=== PATIENT | male | born 1990 | race Caucasian/White ===

== ENCOUNTER 2019-06-10 11:05 | Observation (INO) | payer SELFPAY ==
[2019-06-10] MEDS ORDERED: Sodium Chloride 0.9% 1,000 ML IV ONE (11:10)
[2019-06-10] MEDS ORDERED: Ondansetron 4 MG/2 ML SDV IVPUSH ONE (11:12)
[2019-06-10] MEDS ORDERED: LORazepam 2 MG/ML SDV IVPUSH ONE (11:18)
--- NOTE | 2019-06-10 11:18 | EDM.PDOCBH ---
ED HPI GENERAL MEDICAL PROBLEM - General Chief Complaint: Drug or Alcohol Abuse Stated Complaint: EMS ARRIVAL Time Seen by Provider: 06/10/19 11:15 Source of Information: Reports: Patient History Limitations: Reports: No Limitations - History of Present Illness INITIAL COMMENTS - FREE TEXT/NARRATIVE: HISTORY AND PHYSICAL: History of present illness: Patient is a 28-year-old male who presents to the emergency room today with complaints of alcohol withdrawal and bilateral hand cramping. He reports that he has a daily drinker, drinking approximately 3 L of vodka daily. Stating "if I don't drink all day long although through withdrawals within 2 hours". He states his last drink was at 8 AM and has not been able to obtain any alcohol, therefore called EMS to transport to the emergency room. Patient denies any fever, chills, headache, change in vision, syncope or near syncope. Denies any chest pain, back pain, shortness of breath or cough. Denies any abdominal pain, nausea, vomiting, diarrhea, constipation or dysuria. Has not noted any blood in urine or stool. Patient has been eating and drinking appropriately. Review of systems: As per history of present illness and below otherwise all systems reviewed and negative. Past medical history: As per history of present illness and as reviewed below otherwise noncontributory. Surgical history: As per history of present illness and as reviewed below otherwise noncontributory. Social history: See social history for further information Family history: As per history of present illness and as reviewed below otherwise noncontributory. Physical exam: General: Well-developed and well-nourished 28 showed male. Alert and oriented. Nontoxic appearing and in no acute distress. HEENT: Atraumatic, normocephalic, pupils equal and reactive bilaterally, negative for conjunctival pallor or scleral icterus, mucous membranes moist, TMs normal bilaterally, throat clear, neck supple, nontender, trachea midline. No drooling or trismus noted. No meningeal signs. No hot potato voice noted. Lungs: Clear to auscultation, breath sounds equal bilaterally, chest nontender. Heart: S1S2, regular rate and rhythm without overt murmur Abdomen: Soft, nondistended, nontender. Negative for masses or hepatosplenomegaly. Negative for costovertebral tenderness. Pelvis: Stable nontender. Genitourinary: Deferred. Rectal: Deferred. Skin: Intact, warm, dry. No lesions or rashes noted. Extremities: Atraumatic, moves all extremities per self without difficulty or deficits, negative for cords or calf pain. Carpalpedal spasm bilaterally. Neurovascular unremarkable. Neuro: Awake, alert, oriented. Cranial nerves II through XII unremarkable. Cerebellum unremarkable. Motor and sensory unremarkable throughout. Exam nonfocal. Notes: Carpal pedal spasms have resolved after IV fluid initiation and IV Ativan. Patient does have low potassium. We'll admit patient for IV fluid replacement and potassium. He is agreeable. Dr. Ramirez was consulted on this patient. Dr Boyd has been down to evaluate this patient. Diagnostics: CBC, CMP, Therapeutics: IV fluids, Zofran, Banana Bag, Ativan Impression: Hypokalemia Alcohol Abuse Plan: Observation to Med/Surg Definitive disposition and diagnosis as appropriate pending reevaluation and review of above. 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: Other (see below) Other Treatments RN HOUSE SUPERVISOR: BG [id number] Left Hand Pain Score (Numeric/FACES): 6 - Related Data Allergies Allergy/AdvReac Type Severity Reaction Status Date / Time No Known Allergies Allergy Verified 06/10/19 18:11 Home Meds: Home Meds ALPRAZolam [Xanax] 1 mg PO 06/10/19 [History] Propranolol [Inderal] 10 mg PO 06/10/19 [History] QUEtiapine [SEROquel] 25 mg PO BID 06/10/19 [History] Past Medical History - Past Health History Medical/Surgical History: Denies Medical/Surgical History Psychiatric History: Reports: Anxiety Social & Family History - Family History Family Medical History: Noncontributory - Tobacco Use Smoking Status *Q: Current Every Day Smoker Years of Tobacco use: 16 Packs/Tins Daily: 1 - Recreational Drug Use Recreational Drug Use: No ED ROS GENERAL - Review of Systems Review Of Systems: ROS reveals no pertinent complaints other than HPI. ED EXAM, BEHAVIORAL HEALTH - Physical Exam Exam: See Below (See dictation) COURSE, BEHAVIORAL HEALTH COMP - Course Vital Signs: Last Vital Signs Temp 98.3 F 06/10/19 16:00 Pulse 89 06/10/19 16:00 Resp 18 06/10/19 16:00 BP 113/71 06/10/19 16:00 Pulse Ox 99 06/10/19 16:00 Orders, Labs, Meds: Active Orders 24 hr Category Date Time Status Admission Status [Patient Status] [ADT] Stat ADT 06/10/19 12:33 Active Cardiac Monitoring [RC] . DIRECTED Care 06/10/19 12:49 Active EKG Documentation Completion [RC] STAT Care 06/10/19 12:06 Active Medication Orders Acetaminophen (Tylenol) 650 mg PO Q4H PRN PRN Reason: Pain/Fever Enoxaparin Sodium (Lovenox) 40 mg SUBCUT Q24H LAVONNE Last Admin: 06/10/19 15:19 Dose: 40 mg Folic Acid (Folic Acid) 1 mg PO BEDTIME LAVONNE Sodium Chloride (Normal Saline) 1,000 mls @ 125 mls/hr IV ASDIRECTED LAVONNE Last Admin: 06/10/19 13:24 Dose: 125 mls/hr Lorazepam (Ativan) 0 mg PO Q4H PRN; Protocol PRN Reason: Withdrawal Symptoms Last Admin: 06/10/19 16:54 Dose: 1 mg Lorazepam (Ativan) 0 mg IVPUSH Q4H PRN; Protocol PRN Reason: Withdrawal Symptoms Multivitamins/Minerals/Vitamin C (Tab-A-Florian) 1 tab PO BEDTIME L[facility]ONNE Ondansetron HCl (Zofran) 4 mg IVPUSH Q4H PRN PRN Reason: Nausea/Vomiting Last Admin: 06/10/19 16:59 Dose: 4 mg Thiamine HCl (Vitamin B-1) 100 mg PO BEDTIME [facility] Laboratory Tests 06/10/19 06/10/19 Range/Units 11:21 11:21 WBC 11.17 H (4.0-11.0) K/uL RBC 5.64 (4.50-5.90) M/uL Hgb 16.4 (13.0-17.0) g/dL Hct 46.3 (38.0-50.0) % MCV 82.1 (80.0-98.0) fL MCH 29.1 (27.0-32.0) pg MCHC 35.4 (31.0-37.0) g/dL RDW Std Deviation 38.6 (28.0-62.0) fl RDW Coeff of Katya 13 (11.0-15.0) % Plt Count 305 (150-400) K/uL MPV 9.80 (7.40-12.00) fL Neut % (Auto) 70.9 (48.0-80.0) % Lymph % (Auto) 20.2 (16.0-40.0) % [place] % (Auto) 8.6 (0.0-15.0) % Eos % (Auto) 0.0 (0.0-7.0) % Baso % (Auto) 0.3 (0.0-1.5) % Neut # (Auto) 7.9 H (1.4-5.7) K/uL Lymph # (Auto) 2.3 (0.6-2.4) K/uL [place] # (Auto) 1.0 H (0.0-0.8) K/uL Eos # (Auto) 0.0 (0.0-0.7) K/uL Baso # (Auto) 0.0 (0.0-0.1) K/uL Nucleated RBC % 0.0 /100WBC Nucleated RBCs # 0 K/uL Sodium 138 (136-148) mmol/L Potassium 2.8 L (3.5-5.1) mmol/L Chloride 88 L (98-107) mmol/L Carbon Dioxide 31.1 (21.0-32.0) mmol/L BUN 9 (7.0-18.0) mg/dL Creatinine 1.0 (0.8-1.3) mg/dL Est Cr Clr Drug Dosing 115.58 mL/min Estimated GFR (MDRD) > 60.0 ml/min Glucose 149 H (74-106) mg/dL Calcium 9.5 (8.5-10.1) mg/dL Magnesium 2.3 (1.8-2.4) mg/dL Total Bilirubin 1.1 H (0.2-1.0) mg/dL AST 58 H (15-37) IU/L ALT 58 (14-63) IU/L Alkaline Phosphatase 201 H (46-116) U/L Total Protein 8.4 H (6.4-8.2) g/dL Albumin 4.2 (3.4-5.0) g/dL Globulin 4.2 H (2.6-4.0) g/dL Albumin/Globulin Ratio 1.0 (0.9-1.6) Ethyl Alcohol 249 mg/dL Medications Generic Name Dose Route Start Last Admin Trade Name Megan PRN Reason Stop Dose Admin Acetaminophen 650 mg 06/10/19 15:23 Tylenol PO Q4H PRN Pain/Fever Enoxaparin Sodium 40 mg 06/10/19 13:15 06/10/19 15:19 Lovenox SUBCUT 40 mg Q24H LAVONNE Administration Folic Acid 1 mg 06/10/19 21:00 Folic Acid PO BEDTIME L[facility]ONNE Sodium Chloride 1,000 mls @ 125 mls/hr 06/10/19 13:15 06/10/19 13:24 Normal Saline IV 125 mls/hr ASDIRECTED LAVONNE Administration Lorazepam 0 mg 06/10/19 13:13 06/10/19 16:54 Ativan PO 1 mg Q4H PRN Administration Withdrawal Symptoms Protocol Lorazepam 0 mg 06/10/19 13:15 Ativan IVPUSH Q4H PRN Withdrawal Symptoms Protocol Multivitamins/Minerals/Vitamin C 1 tab 06/10/19 21:00 Tab-A-Florian PO BEDTIME L[facility]ONNE Ondansetron HCl 4 mg 06/10/19 15:24 06/10/19 16:59 Zofran IVPUSH 4 mg Q4H PRN Administration Nausea/Vomiting Thiamine HCl 100 mg 06/10/19 21:00 Vitamin B-1 PO BEDTIME LAVONNE Discontinued Medications Generic Name Dose Route Start Last Admin Trade Name Megan VASQUEZN Reason Stop Dose Admin Sodium Chloride 1,000 mls @ 999 mls/hr 06/10/19 11:10 06/10/19 11:39 Normal Saline IV 06/10/19 12:10 999 mls/hr STAT ONE Administration Multivitamins/Minerals 10 ml/ 1,011.2 mls @ 999 mls/hr 06/10/19 11:20 12:05 Thiamine HCl 100 mg/ Folic IV 06/10/19 12:20 999 mls/hr Acid 1 mg/ Sodium Chloride ONETIME ONE Administration Potassium Chloride 40 meq/ 100 mls @ 25 mls/hr 06/10/19 12:05 06/10/19 13:24 Premix IV 06/10/19 16:04 25 mls/hr ONETIME ONE Administration Lorazepam 1 mg 06/10/19 11:18 06/10/19 11:41 Ativan IVPUSH 06/10/19 11:19 1 mg ONETIME ONE Administration Ondansetron HCl 4 mg 06/10/19 11:12 06/10/19 11:39 Zofran IVPUSH 06/10/19 11:13 4 mg ONETIME ONE Administration Departure - Departure Time of Disposition: 18:18 Disposition: Refer to Observation Clinical Impression: Alcohol abuse, Hypokalemia - Discharge Information - My Orders Last 24 Hours: My Active Orders 06/10/19 12:06 EKG Documentation Completion [RC] STAT 06/10/19 12:33 Admission Status [Patient Status] [ADT] Stat 06/10/19 12:49 Cardiac Monitoring [RC] . DIRECTED - Assessment/Plan Last 24 Hours: My Active Orders 06/10/19 12:06 EKG Documentation Completion [RC] STAT 06/10/19 12:33 Admission Status [Patient Status] [ADT] Stat 06/10/19 12:49 Cardiac Monitoring [RC] . DIRECTED
[2019-06-10] MEDS ORDERED: MVI, Adult with Vitamin K 10 ML, Thiamine 100 MG, Folic Acid 1 MG in Sodium Chloride 0.... IV ONE ×4 (11:20)
[2019-06-10 12:00] LABS: CHLORIDE,CL 88 mmol/L (98-107); SODIUM,NA 138 mmol/L (136-148)
[2019-06-10] MEDS ORDERED: Potassium Chloride Riders 40 MEQ in Premix Bag 1 BAG IV ONE (12:05)
[2019-06-10] MEDS ORDERED: LORazepam 0.5 MG Tab PO PRN (13:13)
[2019-06-10] MEDS ORDERED: LORazepam 2 MG/ML SDV IVPUSH PRN (13:15)
[2019-06-10] MEDS: Sodium Chloride 0.9% 1,000 ML IV SCH ×2 (13:24→21:17)
--- NOTE | 2019-06-10 13:24 | PCM.HP.2 ---
H&P History of Present Illness - General Date of Service: 06/10/19 Admit Problem/Dx: Admission Diagnosis/Problem Admission Diagnosis/Problem Hypokalemia - History of Present Illness Initial Comments - Free Text/Narative: The patient is a 28-year-old male who presented to the ER today wanting detox. He reports for the past 6 days and drinking 3-4 bottles of vodka daily. His last drink was 8 AM this morning. He reports that he's been to rehabilitation several times, last time was December of this year. 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 He notes that his withdrawal symptoms include clenching of his fist which he had this morning and got better with Ativan dose in the ER. He reports he does not want to go to rehabilitation at this point, he just wants to sober up. In the ER labs did not show any anemia or thrombocytopenia. It did show that he was hypokalemic, so he was given a banana bag and 40 mEq of potassium He was also given a dose of Ativan and multivitamin as well. Additional lab results and elevation in his AST and alkaline phosphatase. His alcohol level was 249. Left Hand Pain Score (Numeric/FACES): 6 - Related Data Allergies/Adverse Reactions: Allergies Allergy/AdvReac Type Severity Reaction Status Date / Time No Known Allergies Allergy Verified 06/10/19 11:09 Home Medications: Home Meds ALPRAZolam [Xanax] 1 mg PO 06/10/19 [History] Propranolol [Inderal] 10 mg PO 06/10/19 [History] QUEtiapine [SEROquel] 25 mg PO BID 06/10/19 [History] Past Medical History - Past Health History Medical/Surgical History: Denies Medical/Surgical History Psychiatric History: Reports: Addiction, Anxiety - Past Surgical History Other Musculoskeletal Surgeries/Procedures:: shoulder and wrist Social & Family History - Family History Family Medical History: Noncontributory - Tobacco Use Smoking Status *Q: Current Every Day Smoker Years of Tobacco use: 16 Packs/Tins Daily: 1 - Alcohol Use Alcohol Use History: Yes Alcohol Use Frequency: Binges - Recreational Drug Use Recreational Drug Use: No H&P Review of Systems - Review of Systems: Review Of Systems: See Below General: Reports: No Symptoms HEENT: Reports: No Symptoms Pulmonary: Reports: No Symptoms Cardiovascular: Reports: No Symptoms Gastrointestinal: Reports: No Symptoms Genitourinary: Reports: No Symptoms Musculoskeletal: Reports: No Symptoms Skin: Reports: No Symptoms Psychiatric: Reports: No Symptoms Neurological: Reports: No Symptoms Exam - Exam Exam: See Below - Vital Signs Vital Signs: Last Vital Signs Temp 97.3 F 06/10/19 11:07 Pulse 92 06/10/19 12:07 Resp 18 06/10/19 12:07 BP 151/86 H 06/10/19 12:07 Pulse Ox 98 06/10/19 12:07 Weight: 81.647 kg - Exam General: Alert, Oriented, Cooperative HEENT: Conjunctiva Clear, EOMI, Mucosa Moist & [place], Posterior Pharynx Clear, Pupils Equal, Pupils Reactive Neck: Supple Lungs: Clear to Auscultation, Normal Respiratory Effort Cardiovascular: Regular Rate, Regular Rhythm GI/Abdominal Exam: Normal Bowel Sounds, Soft, Non-Tender, No Distention Extremities: No Pedal Edema Skin: Warm, Dry, Intact Neuro Extensive - Mental Status: Alert, Oriented x3 Psychiatric: Alert, Normal Affect, Normal Mood - Patient Data Lab Results Last 24 hrs: Laboratory Results - last 24 hr 06/10/19 06/10/19 Range/Units 11:21 11:21 WBC 11.17 H (4.0-11.0) K/uL RBC 5.64 (4.50-5.90) M/uL Hgb 16.4 (13.0-17.0) g/dL Hct 46.3 (38.0-50.0) % MCV 82.1 (80.0-98.0) fL MCH 29.1 (27.0-32.0) pg MCHC 35.4 (31.0-37.0) g/dL RDW Std Deviation 38.6 (28.0-62.0) fl RDW Coeff of [place] 13 (11.0-15.0) % Plt Count 305 (150-400) K/uL MPV 9.80 (7.40-12.00) fL Neut % (Auto) 70.9 (48.0-80.0) % Lymph % (Auto) 20.2 (16.0-40.0) % [place] % (Auto) 8.6 (0.0-15.0) % Eos % (Auto) 0.0 (0.0-7.0) % Baso % (Auto) 0.3 (0.0-1.5) % Neut # (Auto) 7.9 H (1.4-5.7) K/uL Lymph # (Auto) 2.3 (0.6-2.4) K/uL [place] # (Auto) 1.0 H (0.0-0.8) K/uL Eos # (Auto) 0.0 (0.0-0.7) K/uL Baso # (Auto) 0.0 (0.0-0.1) K/uL Nucleated RBC % 0.0 /100WBC Nucleated RBCs # 0 K/uL Sodium 138 (136-148) mmol/L Potassium 2.8 L (3.5-5.1) mmol/L Chloride 88 L (98-107) mmol/L Carbon Dioxide 31.1 (21.0-32.0) mmol/L BUN 9 (7.0-18.0) mg/dL Creatinine 1.0 (0.8-1.3) mg/dL Est Cr Clr Drug Dosing 115.58 mL/min Estimated GFR (MDRD) > 60.0 ml/min Glucose 149 H (74-106) mg/dL Calcium 9.5 (8.5-10.1) mg/dL Magnesium 2.3 (1.8-2.4) mg/dL Total Bilirubin 1.1 H (0.2-1.0) mg/dL AST 58 H (15-37) IU/L ALT 58 (14-63) IU/L Alkaline Phosphatase 201 H (46-116) U/L Total Protein 8.4 H (6.4-8.2) g/dL Albumin 4.2 (3.4-5.0) g/dL Globulin 4.2 H (2.6-4.0) g/dL Albumin/Globulin Ratio 1.0 (0.9-1.6) Ethyl Alcohol 249 mg/dL Result Diagrams: 06/10/19 11:21 06/10/19 11:21 Problem List Initiated/Reviewed/Updated: Yes Orders Last 24hrs: Active Orders 24 hr Category Date Time Status Admission Status [Patient Status] [ADT] Stat ADT 06/10/19 12:33 Active CIWAA Assessment [RC] ASDIRECTED Care 06/10/19 13:13 Ordered Cardiac Monitoring [RC] . DIRECTED Care 06/10/19 12:49 Active EKG Documentation Completion [RC] STAT Care 06/10/19 12:06 Active Intake and Output [RC] ASDIRECTED Care 06/10/19 13:11 Ordered Vital Signs [RC] PER UNIT ROUTINE Care 06/10/19 13:11 Ordered High Protein Diet [DIET] Diet 06/10/19 Lunch Ordered Enoxaparin [Lovenox] Med 06/10/19 13:15 Ordered 40 mg SUBCUT Q24H Folic Acid Med 06/10/19 21:00 Ordered 1 mg PO BEDTIME LORazepam [Ativan] Med 06/10/19 13:15 Ordered See Protocol IVPUSH Q4H PRN LORazepam [Ativan] Med 06/10/19 13:13 Ordered See Protocol PO Q4H PRN Multivitamins [Tab-A-Florian] Med 06/10/19 21:00 Ordered 1 tab PO BEDTIME Potassium Chloride Riders [KCL 40 MEQ in Water 100 ML] Med 06/10/19 12:05 Active 40 meq Premix Bag 1 bag IV ONETIME Sodium Chloride 0.9% [Normal Saline] 1,000 ml Med 06/10/19 13:15 Active IV ASDIRECTED Thiamine [Vitamin B-1] Med 06/10/19 21:00 Ordered 100 mg PO BEDTIME Resuscitation Status Stat Resus Stat 06/10/19 13:11 Ordered Medication Orders Enoxaparin Sodium (Lovenox) 40 mg SUBCUT Q24H [facility] Folic Acid (Folic Acid) 1 mg PO BEDTIME [facility] Potassium Chloride 40 meq/ (Premix) 100 mls @ 25 mls/hr IV ONETIME ONE Stop: 06/10/19 16:04 Sodium Chloride (Normal Saline) 1,000 mls @ 125 mls/hr IV ASDIRECTED [facility] Lorazepam (Ativan) 0 mg PO Q4H PRN; Protocol PRN Reason: Withdrawal Symptoms Lorazepam (Ativan) 0 mg IVPUSH Q4H PRN; Protocol PRN Reason: Withdrawal Symptoms Multivitamins/Minerals/Vitamin C (Tab-A-Florian) 1 tab PO BEDTIME L[facility] Thiamine HCl (Vitamin B-1) 100 mg PO BEDTIME LAVONNE Assessment/Plan Comment:: 1. Admit to inpatient 2. Code status- full 3. Vitals per routine 4. I/Os per routine 5. Diet- high calorie/high protein 6. DVT prophylaxis with lovenox 7. Alcohol intoxication with impending withdrawal- Ativan/CIWA protocol. WIll start MVI, thiamine, and folic acid. Will start IVF at 150 cc/hr. 8. Hx of Anxiety and sleep disorder- continue home propranolol and Seroquel 9. Hypokalemia- replaced in ER, recheck in AM
[2019-06-10] MEDS: Enoxaparin 40 MG/0.4 ML Syringe SUBCUT SCH (15:19)
[2019-06-10] MEDS ORDERED: Acetaminophen 325 MG Tab PO PRN (15:23)
[2019-06-10] MEDS: Ondansetron 4 MG/2 ML SDV IVPUSH PRN ×2 (16:59→21:23)
--- NOTE | 2019-06-10 19:09 | CR ---
Indication: Injury and pain Technique: Left hand 2 views Comparison: None Findings/Impression: Bones: Acute angulated fracture is in the distal 5th metacarpal. No other osseous abnormality. Joint spaces: Unremarkable. Soft tissues: Soft tissue swelling is adjacent to the fracture. Dictated by Maxim Baxter MD @ Jun 10 2019 7:05PM Signed by Dr. Maxim Baxter @ Jun 10 2019 7:07PM
[2019-06-10] MEDS: Thiamine 100 MG Tab PO SCH (21:23)
[2019-06-10] MEDS: Multivitamin Tab PO SCH (21:23)
[2019-06-10] MEDS: Folic Acid 1 MG Tab PO SCH (21:24)
[2019-06-10] MEDS: QUEtiapine 100 MG Tab PO SCH (22:20)
[2019-06-11] MEDS: Acetaminophen/HYDROcodone 325-5 MG Tab PO PRN ×3 (00:34→14:25)
[2019-06-11] MEDS: Sodium Chloride 0.9% 1,000 ML IV SCH ×2 (05:45→14:22)
[2019-06-11 06:56] LABS: CHLORIDE,CL 98 mmol/L (98-107); SODIUM,NA 138 mmol/L (136-148)
[2019-06-11] MEDS: Potassium Chloride 20 MEQ Tab.ER PO SCH ×2 (08:42→10:22)
[2019-06-11 10:26] LABS: CHLORIDE,CL 100 mmol/L (98-107); SODIUM,NA 140 mmol/L (136-148)
--- NOTE | 2019-06-11 12:11 | PCM.PN ---
- General Info Date of Service: 06/11/19 Subjective Update: patient seen at bedside; states he's feeling better; left hand is not painful currently. States he feels tired; denies any new symptoms,shakiness, anxiety or hallucinations. Denies any chest pain, palpitations or other symptoms currently. Mild diarrhea. Functional Status: Reports: Pain Controlled - Review of Systems General: Reports: No Symptoms Pulmonary: Reports: No Symptoms Cardiovascular: Reports: No Symptoms. Denies: Chest Pain, Palpitations Gastrointestinal: Reports: Diarrhea (mild), Nausea. Denies: Abdominal Pain, Constipation Genitourinary: Reports: No Symptoms Musculoskeletal: Reports: No Symptoms, Hand Pain (left hand pain improving since yesterday) Neurological: Reports: Headache (improving) Psychiatric: Denies: Anxiety, Agitation, Cravings, Hallucinations - Patient Data Vitals - Most Recent: Last Vital Signs Temp 97.8 F 06/11/19 11:59 Pulse 105 H 06/11/19 11:59 Resp 16 06/11/19 11:59 BP 114/57 L 06/11/19 11:59 Pulse Ox 98 06/11/19 11:59 Weight - Most Recent: 181 lb I&O - Last 24 Hours: Intake & Output 06/10/19 06/11/19 06/11/19 22:59 06:59 14:59 Intake Total 2163 2020 Output Total 1100 950 Balance 1063 1070 Lab Results Last 24 Hours: Laboratory Results - last 24 hr 06/11/19 06/11/19 06/11/19 Range/Units 05:40 05:40 05:40 WBC 7.44 (4.0-11.0) K/uL RBC 4.43 L (4.50-5.90) M/uL Hgb 12.6 L (13.0-17.0) g/dL Hct 37.7 L (38.0-50.0) % MCV 85.1 (80.0-98.0) fL MCH 28.4 (27.0-32.0) pg MCHC 33.4 (31.0-37.0) g/dL RDW Std Deviation 39.5 (28.0-62.0) fl RDW Coeff of Katya 13 (11.0-15.0) % Plt Count 173 (150-400) K/uL MPV 10.30 (7.40-12.00) fL Neut % (Auto) 58.9 (48.0-80.0) % Lymph % (Auto) 32.9 (16.0-40.0) % [place] % (Auto) 7.0 (0.0-15.0) % Eos % (Auto) 0.8 (0.0-7.0) % Baso % (Auto) 0.4 (0.0-1.5) % Neut # (Auto) 4.4 (1.4-5.7) K/uL Lymph # (Auto) 2.5 H (0.6-2.4) K/uL [place] # (Auto) 0.5 (0.0-0.8) K/uL Eos # (Auto) 0.1 (0.0-0.7) K/uL Baso # (Auto) 0.0 (0.0-0.1) K/uL Nucleated RBC % 0.0 /100WBC Nucleated RBCs # 0 K/uL Sodium 138 (136-148) mmol/L Potassium 2.7 L (3.5-5.1) mmol/L Chloride 98 (98-107) mmol/L Carbon Dioxide 30.9 (21.0-32.0) mmol/L BUN 6 L (7.0-18.0) mg/dL Creatinine 0.9 (0.8-1.3) mg/dL Est Cr Clr Drug Dosing 126.40 mL/min Estimated GFR (MDRD) > 60.0 ml/min Glucose 91 (74-106) mg/dL Calcium 8.6 (8.5-10.1) mg/dL Phosphorus 3.3 (2.6-4.7) mg/dL Magnesium 2.0 (1.8-2.4) mg/dL Total Bilirubin 1.9 H (0.2-1.0) mg/dL AST 33 (15-37) IU/L ALT 40 (14-63) IU/L Alkaline Phosphatase 141 H (46-116) U/L Total Protein 6.2 L (6.4-8.2) g/dL Albumin 3.0 L (3.4-5.0) g/dL Globulin 3.2 (2.6-4.0) g/dL Albumin/Globulin Ratio 0.9 (0.9-1.6) 06/11/19 Range/Units 10:00 WBC (4.0-11.0) K/uL RBC (4.50-5.90) M/uL Hgb (13.0-17.0) g/dL Hct (38.0-50.0) % MCV (80.0-98.0) fL MCH (27.0-32.0) pg MCHC (31.0-37.0) g/dL RDW Std Deviation (28.0-62.0) fl RDW Coeff of Katya (11.0-15.0) % Plt Count (150-400) K/uL MPV (7.40-12.00) fL Neut % (Auto) (48.0-80.0) % Lymph % (Auto) (16.0-40.0) % [place] % (Auto) (0.0-15.0) % Eos % (Auto) (0.0-7.0) % Baso % (Auto) (0.0-1.5) % Neut # (Auto) (1.4-5.7) K/uL Lymph # (Auto) (0.6-2.4) K/uL [place] # (Auto) (0.0-0.8) K/uL Eos # (Auto) (0.0-0.7) K/uL Baso # (Auto) (0.0-0.1) K/uL Nucleated RBC % /100WBC Nucleated RBCs # K/uL Sodium 140 (136-148) mmol/L Potassium 2.9 L (3.5-5.1) mmol/L Chloride 100 (98-107) mmol/L Carbon Dioxide 32.3 H (21.0-32.0) mmol/L BUN 6 L (7.0-18.0) mg/dL Creatinine 0.8 (0.8-1.3) mg/dL Est Cr Clr Drug Dosing 142.20 mL/min Estimated GFR (MDRD) > 60.0 ml/min Glucose 100 (74-106) mg/dL Calcium 8.5 (8.5-10.1) mg/dL Phosphorus (2.6-4.7) mg/dL Magnesium (1.8-2.4) mg/dL Total Bilirubin (0.2-1.0) mg/dL AST (15-37) IU/L ALT (14-63) IU/L Alkaline Phosphatase (46-116) U/L Total Protein (6.4-8.2) g/dL Albumin (3.4-5.0) g/dL Globulin (2.6-4.0) g/dL Albumin/Globulin Ratio (0.9-1.6) Med Orders - Current: Current Medications Acetaminophen (Tylenol) 650 mg PO Q4H PRN PRN Reason: Pain/Fever Hydrocodone Bitart/Acetaminophen ([place] 325-5 Mg) 1 tab PO Q6HR PRN PRN Reason: Pain (moderate 4-6) Last Admin: 06/11/19 08:42 Dose: 1 tab Enoxaparin Sodium (Lovenox) 40 mg SUBCUT Q24H [facility] Last Admin: 06/10/19 15:19 Dose: 40 mg Folic Acid (Folic Acid) 1 mg PO BEDTIME L[facility]ONNE Last Admin: 06/10/19 21:24 Dose: 1 mg Sodium Chloride (Normal Saline) 1,000 mls @ 125 mls/hr IV ASDIRECTED [facility]ONNE Last Admin: 06/11/19 05:45 Dose: 125 mls/hr Lorazepam (Ativan) 0 mg PO Q4H PRN; Protocol PRN Reason: Withdrawal Symptoms Last Admin: 06/10/19 16:54 Dose: 1 mg Lorazepam (Ativan) 0 mg IVPUSH Q4H PRN; Protocol PRN Reason: Withdrawal Symptoms Last Admin: 06/10/19 21:22 Dose: 1 mg Multivitamins/Minerals/Vitamin C (Tab-A-Florian) 1 tab PO BEDTIME [facility] Last Admin: 06/10/19 21:23 Dose: 1 tab Ondansetron HCl (Zofran) 4 mg IVPUSH Q4H PRN PRN Reason: Nausea/Vomiting Last Admin: 06/10/19 21:23 Dose: 4 mg Quetiapine Fumarate (Seroquel) 400 mg PO BEDTIME [facility] Last Admin: 06/10/19 22:20 Dose: 400 mg Thiamine HCl (Vitamin B-1) 100 mg PO BEDTIME [facility]ONNE Last Admin: 06/10/19 21:23 Dose: 100 mg Discontinued Medications Sodium Chloride (Normal Saline) 1,000 mls @ 999 mls/hr IV STAT ONE Stop: 06/10/19 12:10 Last Admin: 06/10/19 11:39 Dose: 999 mls/hr Multivitamins/Minerals 10 ml/Thiamine HCl 100 mg/ Folic Acid 1 mg/ Sodium Chloride 1,011.2 mls @ 999 mls/hr IV ONETIME ONE Stop: 06/10/19 12:20 Last Admin: 06/10/19 12:05 Dose: 999 mls/hr Potassium Chloride 40 meq/ (Premix) 100 mls @ 25 mls/hr IV ONETIME ONE Stop: 06/10/19 16:04 Last Admin: 06/10/19 13:24 Dose: 25 mls/hr Lorazepam (Ativan) 1 mg IVPUSH ONETIME ONE Stop: 06/10/19 11:19 Last Admin: 06/10/19 11:41 Dose: 1 mg Ondansetron HCl (Zofran) 4 mg IVPUSH ONETIME ONE Stop: 06/10/19 11:13 Last Admin: 06/10/19 11:39 Dose: 4 mg Potassium Chloride (Klor-Con M20) 40 meq PO Q2H [facility] Stop: 06/11/19 09:46 Last Admin: 06/11/19 10:22 Dose: 40 meq Quetiapine Fumarate (Seroquel) 400 mg PO BEDTIME [facility]ON[facility] - Exam Quality Assessment: No: Supplemental Oxygen General: Alert, Oriented HEENT: EOMI Neck: Supple Lungs: Clear to Auscultation, Normal Respiratory Effort Cardiovascular: Regular Rate, Regular Rhythm. No: Irregular Rhythm, Bradycardia , Tachycardia GI/Abdominal Exam: Soft, Non-Tender Extremities: Other (left hand in ulnar gutter splint; no tenderness noted) Skin: Warm, Dry, Intact Neurological: No New Focal Deficit Psy/Mental Status: Alert, Normal Affect, Normal Mood - Problem List Review Problem List Initiated/Reviewed/Updated: Yes - Plan Plan:: 1.Alcohol intoxication with impending withdrawal- Ativan/CIWA protocol. WIll continue MVI, thiamine, and folic acid, IVF at 150 cc/hr. 8. Hx of Anxiety and sleep disorder- continue home propranolol and Seroquel 9. Hypokalemia- 40 mg by mouth potassium now, repeat dose in 2 hours. BMP at 3 PM: if still low order IV 40 potassium/1 L at 150 mL per hour. Telemetry continued; mild occasional tachycardia noted overnight however sinus rhythm.
[2019-06-11] MEDS: Enoxaparin 40 MG/0.4 ML Syringe SUBCUT SCH (12:59)
[2019-06-11 15:34] LABS: CHLORIDE,CL 102 mmol/L (98-107); SODIUM,NA 140 mmol/L (136-148)
[2019-06-11] MEDS ORDERED: Potassium Chloride 20 MEQ Tab.ER PO ONE (15:41)
[2019-06-11] MEDS ORDERED: Acetaminophen/HYDROcodone 325-5 MG Tab PO ONE (17:53)
[2019-06-11] MEDS: Multivitamin Tab PO SCH (20:35)
[2019-06-11] MEDS: Thiamine 100 MG Tab PO SCH (20:35)
[2019-06-11] MEDS: Folic Acid 1 MG Tab PO SCH (20:35)
[2019-06-11] MEDS: QUEtiapine 100 MG Tab PO SCH (20:39)
[2019-06-11] MEDS ORDERED: QUEtiapine 100 MG Tab PO SCH (21:00)
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
== END 2019-06-11 21:40 | disposition left against medical advice (07) ==
LOC: MW.ED 11:05 → MW.MS 13:10
PROVIDERS: ADMIT Internal Medicine; ATTEND Internal Medicine
DX: E87.6 Hypokalemia (principal); F10.129 Alcohol abuse with intoxication, unspecified; S62.397A Other fracture of fifth metacarpal bone, left hand, initial encounter for closed fracture; F41.9 Anxiety disorder, unspecified; F17.200 Nicotine dependence, unspecified, uncomplicated; G47.00 Insomnia, unspecified; G47.9 Sleep disorder, unspecified; Y90.8 Blood alcohol level of 240 mg/100 ml or more; W51.XXXA Accidental striking against or bumped into by another person, initial encounter; Z53.21 Procedure and treatment not carried out due to patient leaving prior to being seen by health care provider; Z79.899 Other long term (current) drug therapy
CPT/HCPCS: 36415; 73120; 80048; 80053; 83735; 84100; 85025; 93005; 96365; 96375; 99285; A9270; G0480; J1650; J2060; J2405; J3411; J3480; J7040

== ENCOUNTER 2019-06-12 01:31 | Emergency (ER) | payer SELFPAY | END 2019-06-12 01:44 | disposition left against medical advice (07) | LOC: MW.ED 01:31 | DX: Z53.21 Procedure and treatment not carried out due to patient leaving prior to being seen by health care provider (principal) ==

== ENCOUNTER 2019-06-18 09:51 | Emergency (ER) | payer SELFPAY ==
[2019-06-18] MEDS ORDERED: MVI, Adult with Vitamin K 10 ML, Thiamine 100 MG, Folic Acid 1 MG in Sodium Chloride 0.... IV ONE ×4 (09:53)
[2019-06-18 10:30] LABS: BLOOD UREA NITROGEN,BUN 8 mg/dL (7.0-18.0); CHLORIDE,CL 99 mmol/L (98-107); GLUCOSE RANDOM 85 mg/dL (74-106); POTASSIUM,K 3.5 mmol/L (3.5-5.1); SODIUM,NA 142 mmol/L (136-148)
--- NOTE | 2019-06-18 11:09 | EDM.PDOCBH ---
ED HPI GENERAL MEDICAL PROBLEM - General Chief Complaint: Drug or Alcohol Abuse Stated Complaint: HANDS ARE LOCKING UP Time Seen by Provider: 06/18/19 09:53 Source of Information: Reports: Patient History Limitations: Reports: No Limitations - History of Present Illness INITIAL COMMENTS - FREE TEXT/NARRATIVE: HISTORY AND PHYSICAL: History of present illness: Patient is a 28-year-old male who presents to the emergency room today with complaints of alcohol abuse and carpal pedal spasm bilaterally. Patient was admitted on 06/11/19 for the same complaint. He states after discharge she continue drinking. He is here today by ambulance as he has been drinking again and has the carpal spasms. Patient denies any fever, chills, headache, change in vision, syncope or near syncope. Denies any chest pain, back pain, shortness of breath or cough. Denies any abdominal pain, nausea, vomiting, diarrhea, constipation or dysuria. Has not noted any blood in urine or stool. Patient has been eating and drinking appropriately. Review of systems: As per history of present illness and below otherwise all systems reviewed and negative. Past medical history: As per history of present illness and as reviewed below otherwise noncontributory. Surgical history: As per history of present illness and as reviewed below otherwise noncontributory. Social history: See social history for further information Family history: As per history of present illness and as reviewed below otherwise noncontributory. Physical exam: General: Well-developed and well-nourished 28 showed male. Alert and oriented. Nontoxic appearing and in no acute distress. HEENT: Atraumatic, normocephalic, pupils equal and reactive bilaterally, negative for conjunctival pallor or scleral icterus, mucous membranes moist, TMs normal bilaterally, throat clear, neck supple, nontender, trachea midline. No drooling or trismus noted. No meningeal signs. No hot potato voice noted. Lungs: Clear to auscultation, breath sounds equal bilaterally, chest nontender. Heart: S1S2, regular rate and rhythm without overt murmur Abdomen: Soft, nondistended, nontender. Negative for masses or hepatosplenomegaly. Negative for costovertebral tenderness. Skin: Intact, warm, dry. No lesions or rashes noted. Extremities: Atraumatic, moves all extremities per self without difficulty or deficits, negative for cords or calf pain. Left hand has carpal pedal spasm, able to move it manually and open without difficulty. Neurovascular unremarkable. Neuro: Awake, alert, oriented. Cranial nerves II through XII unremarkable. Cerebellum unremarkable. Motor and sensory unremarkable throughout. Exam nonfocal. Notes: Lab work is unremarkable with the exception of elevated transaminases. He does feel improved after IV fluids. Vital signs remain stable. Encourage the patient to find an outpatient alcohol treatment program. Gave him information on external resources that are available to him. Supportive care measures were reviewed and discussed. Voices understanding and is agreeable to plan of care. Denies any further questions or concerns at this time. Diagnostics: CBC, CMP Therapeutics: IV fluid Prescription: None Impression: Carpal pedal spasm Elevated transaminases Alcohol Abuse Plan: 1. Stop drinking alcohol. Please find an outpatient or inpatient alcohol treatment program that you will adhere to. 2. Please follow-up with your primary care provider to have your liver enzymes reevaluated. 3. Return to the ED as needed and as discussed. Definitive disposition and diagnosis as appropriate pending reevaluation and review of above. 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: blood sugar 106mg/dl - Related Data Allergies Allergy/AdvReac Type Severity Reaction Status Date / Time No Known Allergies Allergy Verified 06/18/19 09:55 Home Meds: Home Meds Acetaminophen/HYDROcodone [[place] 325-5 MG] 1 tab PO Q6HR PRN 06/10/19 [History] Ibuprofen 600 mg PO Q6HR PRN 06/10/19 [History] Propranolol [Inderal] 30 mg PO BID PRN 06/10/19 [History] QUEtiapine Fumarate [Seroquel] 400 mg PO BEDTIME 06/10/19 [History] QUEtiapine [SEROquel] 25 mg PO BID 06/10/19 [History] Past Medical History - Past Health History Medical/Surgical History: Denies Medical/Surgical History Musculoskeletal History: Reports: None Other Neuro History: seizures when drinking Psychiatric History: Reports: Anxiety - Past Surgical History Neurological Surgical History: Reports: None Musculoskeletal Surgical History: Reports: Other (See Below) Other Musculoskeletal Surgeries/Procedures:: r shoulder and l wrist, both legs fx Social & Family History - Family History Family Medical History: Noncontributory - Tobacco Use Smoking Status *Q: Current Every Day Smoker Years of Tobacco use: 6 Packs/Tins Daily: 2 - Caffeine Use Caffeine Use: Reports: Coffee, Energy Drinks - Alcohol Use Days Per Week of Alcohol Use: 7 Number of Drinks Per Day: 1 Total Drinks Per Week: 7 - Recreational Drug Use Recreational Drug Use: No ED ROS GENERAL - Review of Systems Review Of Systems: ROS reveals no pertinent complaints other than HPI. ED EXAM, BEHAVIORAL HEALTH - Physical Exam Exam: See Below (See dictation) COURSE, BEHAVIORAL HEALTH COMP - Course Vital Signs: Last Vital Signs Temp 97.1 F 06/18/19 11:32 Pulse 90 06/18/19 11:32 Resp 18 06/18/19 11:32 BP 131/76 06/18/19 11:32 Pulse Ox 95 06/18/19 11:32 Orders, Labs, Meds: Laboratory Tests 06/18/19 06/18/19 Range/Units 10:00 10:00 WBC 7.01 (4.0-11.0) K/uL RBC 5.45 (4.50-5.90) M/uL Hgb 15.8 (13.0-17.0) g/dL Hct 46.2 (38.0-50.0) % MCV 84.8 (80.0-98.0) fL MCH 29.0 (27.0-32.0) pg MCHC 34.2 (31.0-37.0) g/dL RDW Std Deviation 43.1 (28.0-62.0) fl RDW Coeff of Katya 14 (11.0-15.0) % Plt Count 179 (150-400) K/uL MPV 9.20 (7.40-12.00) fL Neut % (Auto) 66.9 (48.0-80.0) % Lymph % (Auto) 22.1 (16.0-40.0) % Ada % (Auto) 10.0 (0.0-15.0) % Eos % (Auto) 0.6 (0.0-7.0) % Baso % (Auto) 0.4 (0.0-1.5) % Neut # (Auto) 4.7 (1.4-5.7) K/uL Lymph # (Auto) 1.6 (0.6-2.4) K/uL Ada # (Auto) 0.7 (0.0-0.8) K/uL Eos # (Auto) 0.0 (0.0-0.7) K/uL Baso # (Auto) 0.0 (0.0-0.1) K/uL Nucleated RBC % 0.0 /100WBC Nucleated RBCs # 0 K/uL Sodium 142 (136-148) mmol/L Potassium 3.5 (3.5-5.1) mmol/L Chloride 99 (98-107) mmol/L Carbon Dioxide 27.0 (21.0-32.0) mmol/L BUN 8 (7.0-18.0) mg/dL Creatinine 0.8 (0.8-1.3) mg/dL Est Cr Clr Drug Dosing 139.93 mL/min Estimated GFR (MDRD) > 60.0 ml/min Glucose 85 (74-106) mg/dL Calcium 8.4 L (8.5-10.1) mg/dL Total Bilirubin 0.7 (0.2-1.0) mg/dL AST 152 H (15-37) IU/L ALT 158 H (14-63) IU/L Alkaline Phosphatase 174 H (46-116) U/L Total Protein 7.9 (6.4-8.2) g/dL Albumin 3.6 (3.4-5.0) g/dL Globulin 4.3 H (2.6-4.0) g/dL Albumin/Globulin Ratio 0.8 L (0.9-1.6) Medications Discontinued Medications Generic Name Dose Route Start Last Admin Trade Name Freq PRN Reason Stop Dose Admin Multivitamins/Minerals 10 ml/ 1,011.2 mls @ 999 mls/hr 06/18/19 09:53 Thiamine HCl 100 mg/ Folic IV 06/18/19 10:53 Acid 1 mg/ Sodium Chloride ONETIME ONE Departure - Departure Time of Disposition: 11:09 Disposition: Home, Self-Care 01 Clinical Impression: Elevated transaminase level, Alcohol abuse - Discharge Information Instructions: Alcohol Use Disorder Referrals: PCP,Unknown [Primary Care Provider] - Forms: ED Department Discharge Additional Instructions: The following information is given to patients seen in the emergency department who are being discharged to home. This information is to outline your options for follow-up care. We provide all patients seen in our emergency department with a follow-up referral. The need for follow-up, as well as the timing and circumstances, are variable depending upon the specifics of your emergency department visit. If you don't have a primary care physician on staff, we will provide you with a referral. We always advise you to contact your personal physician following an emergency department visit to inform them of the circumstance of the visit and for follow-up with them and/or the need for any referrals to a consulting specialist. The emergency department will also refer you to a specialist when appropriate. This referral assures that you have the opportunity for follow-up care with a specialist. All of these measure are taken in an effort to provide you with optimal care, which includes your follow-up. Under all circumstances we always encourage you to contact your private physician who remains a resource for coordinating your care. When calling for follow-up care, please make the office aware that this follow-up is from your recent emergency room visit. If for any reason you are refused follow-up, please contact the [facility] Emergency Department at and asked to speak to the emergency department charge nurse. [facility] [address] [place] [id number] [place] [address] 1. Stop alcohol use. Find an outpatient or inpatient alcohol treatment program that he will adhere to. 2. Please follow-up with your primary care provider to have your liver enzymes reevaluated. 3. Return to the ED as needed and as discussed.
== END 2019-06-18 11:32 | disposition home or self-care (01) ==
LOC: MW.ED 09:51
DX: F10.10 Alcohol abuse, uncomplicated (principal); R29.0 Tetany; R74.0 Nonspecific elevation of levels of transaminase and lactic acid dehydrogenase [LDH]; F41.9 Anxiety disorder, unspecified; F17.210 Nicotine dependence, cigarettes, uncomplicated; Z79.899 Other long term (current) drug therapy
CPT/HCPCS: 36415; 80053; 85025; 99285